=== PATIENT | male | born 1950 | race American Indian/Alaskan Native ===

== ENCOUNTER 2021-05-07 11:10 | Inpatient (IN) | payer MEDICARE, OTHER ==
[2021-05-07] MEDS ORDERED: ACETAMINOPHEN 325 MG TAB PO PRN (13:28)
[2021-05-07] MEDS ORDERED: HYDROcodone/ACETAMINOPHEN 5-325 MG TAB PO PRN (13:28)
[2021-05-07] MEDS ORDERED: DEXTROSE 50% IN WATER (25GM) 50 ML SYRINGE IV PRN (14:41)
[2021-05-07] MEDS: INSULIN LISPRO 100 UNIT/ML SUB-Q SCH (21:00)
--- NOTE | 2021-05-08 06:22 | History and Physical Report ---
History of Present Illness Date: 05/08/21 Date of admission: 05/07/21 18:43 Chief Complaint: CVA History of present illness: 71-year-old male who developed left-sided weakness and awaited for the problem to resolve however the symptoms did not resolve and the patient sought help several hours later at [facility]. 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 MRA head showed no large vessel occlusion, multifocal acute infarcts scattered throughout the right frontal parietal lobe, right parietal lobe, left temporal lobe without hemorrhagic conversion and probable small venous anomaly versus cavernous malformation in the left paracentral occipital lobe, chronic infarcts throughout the basal ganglia. No significant stenosis was seen in the vessels of the neck on MR angiogram. MRI brain showed acute to early subacute infarct of the right hemisphere. Patient's A1c at the outside hospital was 12.6 and reportedly the patient has been off medication for at least 2 years. Patient developed AMY superimposed on CKD stage III which was treated with hydration and monitoring. Patient underwent speech therapy evaluation for dysphagia who recommended softer foods and chopped meats due to dentition issues. Notes from outside hospital are slightly unclear as one section of the same note shows aspiration precautions and a modified diet but in a later section of the same note no aspiration precautions. At any rate will have speech therapy evaluate patient for appropriate current diet and continue to treat as needed. After the patient was medically stabilized they were transferred for further rehabilitation. All available medical records have been reviewed. Plan of care was discussed with patient. It appears patient was also sent from the outside hospital with a Holter monitor which she is currently wearing. Per policy as I am told from the monitoring room we also have to keep our telemetry on him. I will try and contact the outside physician Dr. Marcin Sen and see if we can find out who the supervisor safety deposit is as I cannot find anything in the records. If agreeable we will hold off on utilizing the Holter monitor and start that once the patient is discharge. Patient also states that he is not have any issues with swallowing but did early on in his previous hospital stay. We will still have speech therapy evaluate and adjust diet from there. Past History Past Medical History: diabetes, hypertension, renal failure (Stage III CKD per outside hospital) Past Surgical History: No surgical history Social history: lives with family, full code. denies: smoking, alcohol abuse Family history: cancer, diabetes Medications and Allergies Allergies Allergy/AdvReac Type Severity Reaction Status Date / Time No Known Allergies Allergy Unverified 05/07/21 13:43 Active Meds: Active Medications Acetaminophen (Acetaminophen 325 Mg Tab) 650 mg PO Q6H PRN PRN Reason: Pain MILD(1-3)/Fever >100.5/[place] Hydrocodone Bitart/Acetaminophen (Hydrocodone/Acetaminophen 5-325 Mg Tab) 1 each PO Q8H PRN PRN Reason: Pain, Moderate (4-6) Amlodipine Besylate (Amlodipine 10 Mg Tab) 10 mg PO QDAY [facility] Aspirin (Aspirin Ec 81 Mg Tab) 81 mg PO QDAY [facility] Atorvastatin Calcium (Atorvastatin 40 Mg Tab) 80 mg PO QHS [facility] Last Admin: 05/07/21 22:00 Dose: 80 mg Documented by: Clopidogrel Bisulfate (Clopidogrel 75 Mg Tab) 75 mg PO QDAY [facility] Stop: 05/29/21 09:59 Dextrose (Dextrose 50% In Water (25gm) 50 Ml Syringe) 50 ml IV Q30MIN PRN; Protocol PRN Reason: Hypoglycemia Glipizide (Glipizide 5 Mg Tab) 5 mg PO BIDDIAB [facility] Hydrochlorothiazide (Hydrochlorothiazide 25 Mg Tab) 25 mg PO QDAY [facility] Insulin Glargine (Insulin Glargine 100 Units/Ml) 18 units SUB-Q QHS [facility] Insulin Human Lispro (Insulin Lispro 100 Unit/Ml) 0 unit SUB-Q ACHS [facility]; Protocol Last Admin: 05/07/21 21:00 Dose: 2 unit Documented by: Labetalol HCl (Labetalol 200 Mg Tab) 200 mg PO BID [facility] Last Admin: 05/07/21 22:00 Dose: 200 mg Documented by: Losartan Potassium (Losartan 50 Mg Tab) 100 mg PO QDAY [facility] Review of Systems All systems: negative (ROS negative for 10 systems except as noted below with pertinent positives and negatives.) Constitutional: weakness, no fever, no chills, no anorexia Ears, nose, mouth and throat: no decreased hearing, no voice changes Cardiovascular: no chest pain, no palpitations, no edema Respiratory: no cough, no shortness of breath Gastrointestinal: no abdominal pain, no nausea, no vomiting, no diarrhea, no constipation Musculoskeletal: arm numbness/tingling (Mild on left), gait dysfunction, no leg numbness/tingling Integumentary: no rash, no pruritis Neurological: paralysis, weakness, parathesias, no sensory deficit, no double vision Psychiatric: no anxiety, no insomnia Exam - Exam Narrative exam: MUSCULOSKELETAL SPECIALTY EXAM CONSTITUTIONAL: Well developed, well nourished, appropriately groomed. RIGHT hand dominant. LYMPHATIC: No appreciable abnormalities palpable in neck RESPIRATORY: Clear to auscultation bilaterally, no increased work of breathing CARDIOVASCULAR: Regular Rate/ Rhythm, no swelling, edema or tenderness in BUE or BLE. All extremities warm. GI: + bowel sounds, soft, NTTP, nondistended. INTEGUMENTARY: Normal, no lesion, rash, masses or bruising noted in extremities. MUSCULOSKELETAL: BUE and BLE normal without defect, crepitus, subluxation, effusion, arthritic changes or TTP. R 5 /5 L 3 /5 left foot drop ROM decreased on left, normal on right Tone within normal limit NEURO: CN II : Visual govea full to confrontation CN II, III : PERRL CN III, IV, : EOMI CN V : Facial sensation intact CN VII : Symmetric facial expressions and eye closure CN VIII : Hearing intact to finger rustle CN IX, X : Palate/uvula elevate midline, phonation normal CN XI : Intact shoulder shrug and head rotation CN XII : Tongue protrudes midline Sensation intact in all extremities without extinction. Reflexes 2+ on right and 3+ on the left at biceps, brachioradialis and patella. 2 beats of clonus at left ankle. Coordination intact in RUE, impaired on left. No tremor noted in 4 extremities. Naming and repetition intact. Follows 2 step commands. Aphasia not appreciated Dysarthria not appreciated Dysphagia denied but will have speech therapy evaluate Neglect not appreciated POSTURE and GAIT: Sitting posture good. Balance and gait deferred until seen with therapy. PSYCH: Alert, oriented x3, affect appears euthymic. Insight appears intact. - Constitutional Vitals: Vital Signs - 12hr 05/07/21 05/07/21 22:00 23:37 Temperature 98.7 F Pulse Rate 85 79 Respiratory 18 Rate Blood Pressure 125/75 125/75 O2 Sat by Pulse 96 Oximetry - Labs Labs: Laboratory Results - last 72 hr 05/07/21 23:39 POC Glucose 203 H Assessment and Plan Assessment and plan: Patient was assessed and evaluated for Acute Inpatient Rehab Unit. Due to the patients above-mentioned medical complexity, along with decreased functional mobility and self care, this patient continues to require and be appropriate for a comprehensive, multidisciplinary [id number] rehabilitation program. These needs cannot be met in an outpatient or other less intensive setting. The patient would continue to benefit from skilled therapy intervention for at least 3 hours per day, five days a week, with techniques specific to the needs of the patient to improve function, activities of daily living, and reintegration into the community. The patient continues to require: -- OT to improve ROM, self-care, and learn use of adaptive equipment -- PT to improve strength and balance, functional transfers, and ambulation with energy conservation techniques to improve functional mobility -- SERVICE LEARNING COORDINATOR to address cognitive deficits and swallowing ability -- 24 hour RN to ensure and prevent skin breakdown, promote progressive independence while ensuring safety, ensure education regarding medications, and incorporation of the rehabilitation at the bedside -- 24 hour Administrative Intern to coordinate this interdisciplinary program, and to manage/prevent complications as a result of the patients medical comorbidities. -Plan of care by day 4 -Weekly team conferences With such a program, there is a reasonable certainty that the goals individualized for this patient can be achieved within the specified length of stay. CVA: Continue Secondary Stroke Prevention (Antithrombotic, Statin (Goal LDL-C <70), BP control (Goal <140/90), GLU control (Goal A1c <7), and lifestyle modification). Monitor for recurrent stroke or post-stroke recrudescence. Continue neuromotor therapy as above. Family training when available. Monitor for post stroke depression, cognitive deficits, seizure, dysphagia, aphasia, shoulder hand syndrome, sensory deficits, spasticity, bowel/bladder deficits, sleep disturbance, vision deficits and DVT. Prognosis for recovery and Secondary Stroke Prevention discussed. Follow up with Neurology. No driving until cleared by Neurologist. Hypertension: Continue medications, monitor patient for normotension and adjust medications as needed in order to achieve this. Goal blood pressure less than 140/90. Avoid hypotension. Diabetes: Poorly controlled with an A1c of 12.6. Per outside records patient was not taking any medications for the past 2 years for diabetes. We will continue carb controlled diet and insulin/sliding scale and adjust as needed for normoglycemia. Left foot drop: Continue work with therapy, AFO use as needed and will write a prescription for AFO at home if patient does not have return of function Dysphagia: Uncertain at this point based on outside records, will have speech therapy evaluate the patient and institute appropriate precautions. Possible atrial fibrillation: Based on scattered infarcts and outside records, patient may have undetected atrial fibrillation. Continue telemetry monitoring and look for any signs of of atrial fibrillation. If noted, will contact cardi ologist. Outside hospital recommending a 30-day event monitor after discharge. ADL dysfunction: OT will work on improving ability to perform ADLs (including assistive devices) to increase independence and decrease caregiver burden and improve functional transfers and mobility training. Difficulty walking: PT will work on gait training and proper use of assistive devices and advance as appropriate to use of stairs and outside ambulation on uneven surfaces. Unsteadiness on feet: PT will work on improving static and dynamic sitting and standing balance as well as proper use of assistive devices to decrease risk of falls. Abnormality of gait: PT will work to improve safety and efficiency of gait through neuromotor training and gait training along with instruction on proper use of assistive devices. Muscle weakness: PT & OT will work on strengthening exercises to improve functional strength including mixture of closed and open kinetic chain exercises. Debility: PT & OT will work on improving overall functional status to improve participation with ADLs, mobility and social involvement. Fatigue: PT & OT will work on improving endurance through aerobic exercises and therapeutic activity while monitoring patients tolerance for activity and vital signs as needed. DVT ppx: Heparin Pain: Continue physical modalities in therapy and pain medications as needed to achieve functional pain control. Sleep: Monitor and address as needed. Bowel: Monitor and address as needed. Appetite: Monitor and address as needed. Discharge planning: Pending therapy progress and care plan meeting. Will continue discussion with therapy team, SW, patient and family. Restrictions/ Precautions: Falls, aspiration WB status: FWB Functional Hx: ADLs: Independent Cognition: Independent Mobility: No AD Barriers to Discharge: Decreased mobility and ability to perform self care, balance deficits, weakness Estimated Length of Stay: 1421 days Discharge Destination: Home with family POST ADMISSION PHYSICIAN EVALUATION I have examined the patient and find that functional status, medical condition and appropriateness for IRF admission are essentially unchanged from those described in the preadmission screening. Will monitor for worsening neurologic dysfunction, shoulder-hand syndrome, secondary stroke, recrudescence, post drug depression, DVT/PE, bowel and bladder complications and complications due to hypertension, diabetes, possible atrial fibrillation, and electrolyte abnormalities. Will attempt to avoid occurrence of these issues or treat them if they present themselves.
[2021-05-08] MEDS: INSULIN LISPRO 100 UNIT/ML SUB-Q SCH ×5 (08:13→22:32)
[2021-05-08] MEDS: amLODIPine 10 MG TAB PO SCH (09:25)
[2021-05-08] MEDS: hydroCHLOROthiazide 25 MG TAB PO SCH (09:25)
[2021-05-08] MEDS: LOSARTAN 50 MG TAB PO SCH (09:26)
[2021-05-08] MEDS: ASPIRIN EC 81 MG TAB PO SCH (09:26)
[2021-05-08] MEDS: CLOPIDOGREL 75 MG TAB PO SCH (09:26)
[2021-05-08] MEDS: HEPARIN 5,000 UNIT/1 ML VIAL SUB-Q SCH ×2 (09:26→21:57)
[2021-05-08] MEDS: glipiZIDE 5 MG TAB PO SCH ×3 (09:26→21:37)
[2021-05-08 09:53] LABS: Albumin 3.6 g/dL (3.9-5)
[2021-05-08 10:29] LABS: Basophils % (Auto) 0.5 % (0.0-1.8); Eosinophils # (Auto) 0.1 K/mm3 (0.0-0.4); Eosinophils % (Auto) 0.9 % (0.0-4.3); Hematocrit 37.3 % (35.5-45.6); Hemoglobin 12.3 gm/dl (11.8-15.2); Lymphocytes # (Auto) 1.5 K/mm3 (1.2-5.4); Lymphocytes % (Auto) 16.7 % (13.4-35.0); Mean Corpuscular HGB Conc 33 % (32-34); Mean Corpuscular Volume 86 fl (84-94); Monocytes # (Auto) 0.9 K/mm3 (0.0-0.8); Monocytes % (Auto) 10.1 % (0.0-7.3); Platelet Count 270 K/mm3 (140-440); Red Blood Count 4.34 M/mm3 (3.65-5.03); Red Cell Distribution Width 14.4 % (13.2-15.2)
[2021-05-08] MEDS: INSULIN GLARGINE 100 UNITS/ML SUB-Q SCH ×2 (21:38→21:58)
[2021-05-09] MEDS: INSULIN LISPRO 100 UNIT/ML SUB-Q SCH ×4 (08:00→22:04)
[2021-05-09] MEDS: ASPIRIN EC 81 MG TAB PO SCH (10:27)
[2021-05-09] MEDS: HEPARIN 5,000 UNIT/1 ML VIAL SUB-Q SCH ×2 (10:27→21:19)
[2021-05-09] MEDS: hydroCHLOROthiazide 25 MG TAB PO SCH (10:27)
[2021-05-09] MEDS: LOSARTAN 50 MG TAB PO SCH (10:27)
[2021-05-09] MEDS: glipiZIDE 5 MG TAB PO SCH ×2 (10:28→18:15)
[2021-05-09] MEDS: CLOPIDOGREL 75 MG TAB PO SCH (10:28)
[2021-05-09] MEDS: amLODIPine 10 MG TAB PO SCH (10:28)
[2021-05-09] MEDS: INSULIN GLARGINE 100 UNITS/ML SUB-Q SCH (21:58)
[2021-05-10] MEDS: INSULIN LISPRO 100 UNIT/ML SUB-Q SCH ×4 (08:01→21:24)
[2021-05-10] MEDS: HEPARIN 5,000 UNIT/1 ML VIAL SUB-Q SCH ×2 (10:38→21:23)
[2021-05-10] MEDS: amLODIPine 10 MG TAB PO SCH (10:39)
[2021-05-10] MEDS: ASPIRIN EC 81 MG TAB PO SCH (10:39)
[2021-05-10] MEDS: LOSARTAN 50 MG TAB PO SCH (10:39)
[2021-05-10] MEDS: CLOPIDOGREL 75 MG TAB PO SCH (10:39)
[2021-05-10] MEDS: hydroCHLOROthiazide 25 MG TAB PO SCH (10:39)
[2021-05-10] MEDS: glipiZIDE 5 MG TAB PO SCH ×2 (10:40→17:03)
--- NOTE | 2021-05-10 20:26 | IRU Plan of Care ---
Interdisciplinary Plan of Care - IP IRU INTERDISCIPLINARY PLAN: [facility] Inpatient Rehab Unit Plan of Care IRU Interdisciplinary Care Plan Start: 05/08/21 13:03 Freq: Status: Active Protocol: Document 05/10/21 20:04 TH (Rec: 05/10/21 20:09 TH [id number]) Interdisciplinary Problem List Interdisciplinary Problem List Interdisciplinary Problem List Impaired Eating/Swallowing, Query Text:Answers will Trigger Problems Impaired Bathing/Grooming, and Outcomes on Worklist. Impaired Dressing,Impaired Mobility,Impaired Transfers, Impaired Toileting,Impaired Problem Solving,Knowledge Deficits,Adjustment to Disability,Discharge Concerns, Impaired Safety,Diabetes Education IRU Interdisciplinary Care Plan Therapy Services Therapy Services Will Include: Physical Therapy,Occupational Query Text:Patient will be seen for a Therapy,Speech Therapy minimum of 3 hours of daily therapy 5 out of 7 days a week. Therapy intensity may be adjusted within a 7 consecutive day period to effectively serve the individual needs of the patient. Treatment Frequency/Intensity/Duration Treatment Frequency 5x/week Treatment Intensity 3 hours/day Treatment Duration 10-14 days Problem Area: Eating/Swallowing Eating/Swallowing Outcomes Consume Least Restrictive Diet ,Improve Labial ROM/Strength, Improve Lingual ROM/Strength Eating/Swallowing Interventions Dysphagia Training, Compensatory Strategies, Neuromuscular Re-Education, Patient/Caregiver Education Problem Area: Bathing/Grooming Bathing/Grooming Outcomes Improve [place] w/ Grooming,Improve [place] w/ Bathing Bathing/Grooming Interventions ADL Training,Therapeutic Exercise,Therapeutic Activity, Neuromuscular Re-Education, Balance Work,Patient/Caregiver Education Problem Area: Dressing Dressing Outcomes Improve [place] w/ UB Dressing,Improve [place] w/ LB Dressing Dressing Interventions ADL Training,Use of Assistive Devices,Neuromuscular Re- Education,Therapeutic Exercise ,Balance Work,Patient/ Caregiver Education Problem Area: Mobility Mobility Outcomes Improve [place] w/ Bed Mobility,Improve [place] w/ Ambulation,Improve [place] w/ Stairs/Curb, Improve [place] w/ Wheelchair Mobility Interventions Therapeutic Exercise, Neuromuscular Re-Ed.,Use of Assistive Devices,Patient/ Caregiver Education,Bed Mobility Work,Gait Training,W/ C Mobility Work Problem Area: Transfers Transfers Outcomes Improve [place] w/ Bed Transfers,Improve [place] w/ Toilet Transfers,Improve [place] w/ Tub/Shower Transfers,Improve [place] w/ Car Transfers Transfers Interventions Transfer Training,Therapeutic Exercise,Neuromuscular Re- Education,Use of Assistive Devices,Patient/Caregiver Education Problem Area: Bowel/Bladder Managment Bowel/Bladder Outcomes Bowel/Bladder Interventions Problem Area: Toileting Toileting Outcomes Improve [place] w/ Toileting Toileting Interventions ADL Training,Use of Assistive Devices,Patient/Caregiver Education Problem Area: Nutrition Nutrition Outcomes Nutrition Interventions Problem Area: Comprehension Comprehension Outcomes Comprehension Interventions Problem Area: Expression Expression Outcomes Expression Interventions Problem Area: Problem Solving Problem Solving Outcomes Improve Problem Solving Problem Solving Interventions Cognitive Training,Safety Education,Patient/Caregiver Education Problem Area: Memory Memory Outcomes Memory Interventions Problem Area: Pain Management Pain Management Outcomes Pain Management Interventions Problem Area: Knowledge Deficits Knowledge Deficits Outcomes Demonstrate Ability to Manage Blood Glucose,Verbalize Understanding of S/S of Stroke Knowledge Deficits Interventions Disease/Injury/Sx. Intervention Education Problem Area: Skin/Tissue Integrity Skin/Tissue Integrity Outcomes Skin/Tissue Integrity Interventions Problem Area: Social Interaction Social Interaction Outcomes Social Interaction Interventions Problem Area: Adjustment to Disability Adjustment to Disability Outcomes Adjustment to Disability Interventions Problem Area: Discharge Concerns Discharge Concerns Outcomes Discharge w/ Necessary Equipment,Have Home Health/ Outpatient Services Discharge Concerns Interventions Equipment Assessment, Acquisition and Placement, Family/Caregiver Training Problem Area: Community Reintegration Community Reintegration Outcomes Community Reintegration Interventions Problem Area: Home Management Home Management Outcomes Home Management Interventions Problem Area: Safety Safety Outcomes Provide Safe Environment Safety Interventions Identify Fall Risk,[place] Pt. to Environment,Reduce Environmental Hazards Problem Area: Medication Education Medication Education Outcomes Medication Education Interventions Problem Area: Diabetes Education Diabetes Education Outcomes Demonstrate Knowledge of Resources Availlable in Diabetic Ed. Folder Diabetes Education Interventions Discuss Pathophysiology of Diabetes Problem Area: Oxygenation Oxygenation Outcomes Oxygenation Interventions Problem Area: Cardiovascular Cardiovascular Outcomes Cardiovascular Interventions Physician Only Medical Prognosis and Rehabilitation Good rehab potential, good medical prognosis Potential (Completed by Physician) This plan of care has been developed based on the findings from the pre- admission assessment, post admission physician evaluation, information gathered from the assessments from all therapy disciplines and other pertinent clinicians. The plan of care has been reviewed and discussed in collaboration with the interdisciplinary team. The plan of care will be reviewed and updated at least weekly.
[2021-05-10] MEDS: INSULIN GLARGINE 100 UNITS/ML SUB-Q SCH (21:24)
[2021-05-11 06:29] LABS: Mean Corpuscular HGB Conc 34 % (32-34); Mean Corpuscular Volume 86 fl (84-94); Platelet Count 371 K/mm3 (140-440); Red Blood Count 4.52 M/mm3 (3.65-5.03)
[2021-05-11 06:39] LABS: Calcium 9.3 mg/dL (8.4-10.2)
[2021-05-11] MEDS: hydroCHLOROthiazide 25 MG TAB PO SCH (09:12)
[2021-05-11] MEDS: ASPIRIN EC 81 MG TAB PO SCH (09:12)
[2021-05-11] MEDS: glipiZIDE 5 MG TAB PO SCH ×2 (09:12→17:05)
[2021-05-11] MEDS: HEPARIN 5,000 UNIT/1 ML VIAL SUB-Q SCH ×2 (09:13→21:26)
[2021-05-11] MEDS: CLOPIDOGREL 75 MG TAB PO SCH (09:13)
[2021-05-11] MEDS: amLODIPine 10 MG TAB PO SCH (09:13)
[2021-05-11] MEDS: LOSARTAN 50 MG TAB PO SCH (09:14)
[2021-05-11] MEDS: INSULIN LISPRO 100 UNIT/ML SUB-Q SCH ×4 (09:17→21:23)
--- NOTE | 2021-05-11 10:03 | Progress Note ---
Subjective Date of service: 05/11/21 Principal diagnosis: CVA Interval history: 71-year-old male who developed left-sided weakness and awaited for the problem to resolve however the symptoms did not resolve and the patient sought help several hours later at [facility]. 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 MRA head showed no large vessel occlusion, multifocal acute infarcts scattered throughout the right frontal parietal lobe, right parietal lobe, left temporal lobe without hemorrhagic conversion and probable small venous anomaly versus cavernous malformation in the left paracentral occipital lobe, chronic infarcts throughout the basal ganglia. No significant stenosis was seen in the vessels of the neck on MR angiogram. MRI brain showed acute to early subacute infarct of the right hemisphere. Patient's A1c at the outside hospital was 12.6 and reportedly the patient has been off medication for at least 2 years. Patient developed AMY superimposed on CKD stage III which was treated with hydration and monitoring. Patient underwent speech therapy evaluation for dysphagia who recommended softer foods and chopped meats due to dentition issues. Notes from outside hospital are slightly unclear as one section of the same note shows aspiration precautions and a modified diet but in a later section of the same note no aspiration precautions. At any rate will have speech therapy evaluate p atient for appropriate current diet and continue to treat as needed. After the patient was medically stabilized they were transferred for further rehabilitation. All available medical records have been reviewed. Plan of care was discussed with patient. Interval History: Patient is participating in therapy and making reasonable progress. Taking rest breaks as needed. +BM. Denies pain, palpitations, dyspnea, cough, N/V, or joint pain. CVA: Continue secondary stroke prevention. Currently no signs of post stroke depression, shoulder-hand syndrome, spasticity, worsening neurologic condition or recrudescence. Patient does have possible issues with urinary hesitancy which may be related to BPH or the CVA. Will monitor and treat if needed. Hypertension: Blood pressure doing fairly well on current regimen, continue medications and adjust for normotension. Goal blood pressure less than 140/90. Diabetes: Glucose values are starting to improve slightly. Continue medications and look to adjust as needed in order to obtain normoglycemia. We will look to increase glargine slightly tonight. Left foot drop: Continue therapy as noted. Will continue use of AFO and patient will likely need AFO upon discharge. Dysphagia: Evaluated by speech therapy and no signs or symptoms of dysphagia were noted. Due to dentition, recommendation was for mechanical soft diet with chopped meats and thin liquids. Possible atrial fibrillation: Was able to speak with physician at outside hospital concerning the Holter monitor. They are in agreement with us removing the Holter monitor and continue the patient on in-house telemetry until discharge at which time the patient will continue the Holter monitor. So far no episodes of atrial fibrillation noted. CKD: Slight bump in creatinine with an improvement in the BUN. Continue to monitor, avoid nephrotoxic medications. Consider renal consult if needed. ADL and mobility deficits: Continue therapy as noted in order to improve patient's ability to perform ADLs and improve mobility without caregiver assistance if possible. All records, vitals, labs and medications were reviewed. No other issues per patient, nursing or therapy. Objective - Exam Narrative Exam: MUSCULOSKELETAL SPECIALTY EXAM CONSTITUTIONAL: Well developed, well nourished, appropriately groomed. RIGHT hand dominant. RESPIRATORY: Clear to auscultation bilaterally, no increased work of breathing CARDIOVASCULAR: Regular Rate/ Rhythm, no swelling, edema or tenderness in BUE or BLE. All extremities warm. GI: + bowel sounds, soft, NTTP, nondistended. INTEGUMENTARY: Normal, no lesion, rash, masses or bruising noted in extremities. MUSCULOSKELETAL: BUE and BLE normal without defect, crepitus, subluxation, effusion, arthritic changes or TTP. R 5 /5 L 3 - 4- /5 left foot drop ROM decreased on left, normal on right Tone within normal limit NEURO: Sensation intact in all extremities without extinction. No tremor noted in 4 extremities. Naming and repetition intact. Follows 2 step commands. Aphasia not appreciated Dysarthria not appreciated Dysphagia not appreciated Neglect not appreciated POSTURE and GAIT: Sitting posture good. Balance and gait deferred until seen with therapy. PSYCH: Alert, oriented x3, affect appears euthymic. Insight appears intact. - Constitutional Vitals: Vital Signs - 12hr 05/11/21 05/11/21 05/11/21 00:00 00:05 08:44 Temperature 97.9 F 98.3 F Pulse Rate 76 79 83 Respiratory 18 20 Rate Blood Pressure 111/64 120/77 O2 Sat by Pulse 96 93 Oximetry 05/11/21 09:13 Temperature Pulse Rate 83 Respiratory Rate Blood Pressure 120/77 O2 Sat by Pulse Oximetry - Allied health notes Allied health notes reviewed: nursing, PT, ST, OT FIMS assessment as documented by PT/OT/ST: Locomotion- walk/wheelchair Ambulation Distance 80 - Labs CBC & Chem 7: 05/11/21 05:52 05/11/21 05:52 Labs: Laboratory Results - last 72 hr 05/08/21 05/08/21 05/08/21 09:05 11:27 16:08 WBC 9.0 RBC 4.34 Hgb 12.3 Hct 37.3 MCV 86 MCH 28 MCHC 33 RDW 14.4 Plt Count 270 Lymph % (Auto) 16.7 [place] % (Auto) 10.1 H Eos % (Auto) 0.9 Baso % (Auto) 0.5 Lymph # (Auto) 1.5 [place] # (Auto) 0.9 H Eos # (Auto) 0.1 Baso # (Auto) 0.0 Seg Neutrophils % 71.8 H Seg Neutrophils # 6.5 Sodium Potassium Chloride Carbon Dioxide Anion Gap BUN Creatinine Estimated GFR BUN/Creatinine Ratio Glucose POC Glucose 234 H 61 L Calcium 05/08/21 05/09/21 05/09/21 22:56 07:55 11:36 WBC RBC Hgb Hct MCV MCH MCHC RDW Plt Count Lymph % (Auto) [place] % (Auto) Eos % (Auto) Baso % (Auto) Lymph # (Auto) [place] # (Auto) Eos # (Auto) Baso # (Auto) Seg Neutrophils % Seg Neutrophils # Sodium Potassium Chloride Carbon Dioxide Anion Gap BUN Creatinine Estimated GFR BUN/Creatinine Ratio Glucose POC Glucose 145 H 182 H 266 H Calcium 05/09/21 05/09/21 05/10/21 16:32 21:26 07:59 WBC RBC Hgb Hct MCV MCH MCHC RDW Plt Count Lymph % (Auto) [place] % (Auto) Eos % (Auto) Baso % (Auto) Lymph # (Auto) [place] # (Auto) Eos # (Auto) Baso # (Auto) Seg Neutrophils % Seg Neutrophils # Sodium Potassium Chloride Carbon Dioxide Anion Gap BUN Creatinine Estimated GFR BUN/Creatinine Ratio Glucose POC Glucose 188 H 177 H 185 H Calcium 05/10/21 05/10/21 05/10/21 11:39 16:05 20:44 WBC RBC Hgb Hct MCV MCH MCHC RDW Plt Count Lymph % (Auto) [place] % (Auto) Eos % (Auto) Baso % (Auto) Lymph # (Auto) [place] # (Auto) Eos # (Auto) Baso # (Auto) Seg Neutrophils % Seg Neutrophils # Sodium Potassium Chloride Carbon Dioxide Anion Gap BUN Creatinine Estimated GFR BUN/Creatinine Ratio Glucose POC Glucose 238 H 174 H 195 H Calcium 05/11/21 05/11/21 05/11/21 05:52 05:52 08:42 WBC 8.9 RBC 4.52 Hgb 13.0 Hct 39.0 MCV 86 MCH 29 MCHC 34 RDW 14.0 Plt Count 371 Lymph % (Auto) [place] % (Auto) Eos % (Auto) Baso % (Auto) Lymph # (Auto) [place] # (Auto) Eos # (Auto) Baso # (Auto) Seg Neutrophils % Seg Neutrophils # Sodium 134 L Potassium 4.0 Chloride 97.1 L Carbon Dioxide 24 Anion Gap 17 BUN 25 H Creatinine 2.1 H Estimated GFR 38 BUN/Creatinine Ratio 12 Glucose 145 H POC Glucose 166 H Calcium 9.3 Assessment and Plan CVA: Continue Secondary Stroke Prevention (Antithrombotic, Statin (Goal LDL-C <70), BP control (Goal <140/90), GLU control (Goal A1c <7), and lifestyle modification). Monitor for recurrent stroke or post-stroke recrudescence. Continue neuromotor therapy as above. Family training when available. Monitor for post stroke depression, cognitive deficits, seizure, dysphagia, aphasia, shoulder hand syndrome, sensory deficits, spasticity, bowel/bladder deficits, sleep disturbance, vision deficits and DVT. Prognosis for recovery and Secondary Stroke Prevention discussed. Follow up with Neurology. No driving until cleared by Neurologist. Hypertension: Continue medications, monitor patient for normotension and adjust medications as needed in order to achieve this. Goal blood pressure less than 140/90. Avoid hypotension. Diabetes: Poorly controlled with an A1c of 12.6. Per outside records patient was not taking any medications for the past 2 years for diabetes. We will continue carb controlled diet and insulin/sliding scale and adjust as needed for normoglycemia. Left foot drop: Continue work with therapy, AFO use as needed and will write a prescription for AFO at home if patient does not have return of function Dysphagia: Uncertain at this point based on outside records, will have speech therapy evaluate the patient and institute appropriate precautions. Possible atrial fibrillation: Based on scattered infarcts and outside records, patient may have undetected atrial fibrillation. Continue telemetry monitoring and look for any signs of of atrial fibrillation. If noted, will contact telephone sales representative. Outside hospital recommending a 30-day event monitor after discharge. CKD: Uncertain of baseline but patient is relatively stable currently with only a slight bump. Avoid nephrotoxic medications and consider renal consult if needed ADL dysfunction: OT will work on improving ability to perform ADLs (including assistive devices) to increase independence and decrease caregiver burden and improve functional transfers and mobility training. Difficulty walking: PT will work on gait training and proper use of assistive devices and advance as appropriate to use of stairs and outside ambulation on uneven surfaces. Unsteadiness on feet: PT will work on improving static and dynamic sitting and standing balance as well as proper use of assistive devices to decrease risk of falls. Abnormality of gait: PT will work to improve safety and efficiency of gait through neuromotor training and gait training along with instruction on proper use of assistive devices. Muscle weakness: PT & OT will work on strengthening exercises to improve fu nctional strength including mixture of closed and open kinetic chain exercises. Debility: PT & OT will work on improving overall functional status to improve participation with ADLs, mobility and social involvement. Fatigue: PT & OT will work on improving endurance through aerobic exercises and therapeutic activity while monitoring patients tolerance for activity and vital signs as needed. DVT ppx: Heparin Pain: Continue physical modalities in therapy and pain medications as needed to achieve functional pain control. Sleep: Monitor and address as needed. Bowel: Monitor and address as needed. Appetite: Monitor and address as needed. Discharge planning: Pending therapy progress and care plan meeting. Will continue discussion with therapy team, SW, patient and family. Restrictions/ Precautions: Falls WB status: FWB Functional Hx: ADLs: Independent Cognition: Independent Mobility: No AD Barriers to Discharge: Decreased mobility and ability to perform self care, balance deficits, weakness Estimated Length of Stay: 1421 days Discharge Destination: Home with family
[2021-05-11] MEDS ORDERED: NAPROXEN 500 MG TAB PO PRN (17:46)
[2021-05-11] MEDS: INSULIN GLARGINE 100 UNITS/ML SUB-Q SCH (21:25)
--- NOTE | 2021-05-12 07:56 | Progress Note ---
Subjective Date of service: 05/12/21 Principal diagnosis: CVA Interval history: 71-year-old male who developed left-sided weakness and awaited for the problem to resolve however the symptoms did not resolve and the patient sought help several hours later at [facility]. 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 MRA head showed no large vessel occlusion, multifocal acute infarcts scattered throughout the right frontal parietal lobe, right parietal lobe, left temporal lobe without hemorrhagic conversion and probable small venous anomaly versus cavernous malformation in the left paracentral occipital lobe, chronic infarcts throughout the basal ganglia. No significant stenosis was seen in the vessels of the neck on MR angiogram. MRI brain showed acute to early subacute infarct of the right hemisphere. Patient's A1c at the outside hospital was 12.6 and reportedly the patient has been off medication for at least 2 years. Patient developed AMY superimposed on CKD stage III which was treated with hydration and monitoring. Patient underwent speech therapy evaluation for dysphagia who recommended softer foods and chopped meats due to dentition issues. Notes from outside hospital are slightly unclear as one section of the same note shows aspiration precautions and a modified diet but in a later section of the same note no aspiration precautions. At any rate will have speech therapy evaluate p atient for appropriate current diet and continue to treat as needed. After the patient was medically stabilized they were transferred for further rehabilitation. All available medical records have been reviewed. Plan of care was discussed with patient. Interval History: Patient is participating in therapy and making reasonable progress. Taking rest breaks as needed. +BM. Denies pain, palpitations, dyspnea, cough, N/V, or joint pain. Patient did experience some back pain last night and nursing called me for his request of taking Aleve. Pain is better after 1 dose. Did discuss with the patient that he needs to restrict his use of NSAIDs due to his kidney function as well as use of Plavix and aspirin. Patient states that he typically will take 1 pill every couple of weeks whenever he starts to have backache. Will reduce the availability and dose of Aleve and monitor his use of it during his stay. CVA: Continue secondary stroke prevention. Currently no signs of post stroke d epression, shoulder-hand syndrome, spasticity, worsening neurologic condition or recrudescence. Urinary hesitancy has improved and patient is urinating without any issues currently. Hypertension: Blood pressure doing well on current regimen, continue medications and adjust for normotension. Goal blood pressure less than 140/90. Avoid hypotension. Diabetes: Glucose values are starting to improve slightly. Continue medications and look to adjust as needed in order to obtain normoglycemia. Monitor over the next several days after increasing dose of glargine to ensure patient tolerates the dose and improves. Left foot drop: Continue therapy as noted. Will continue use of AFO and patient will likely need AFO upon discharge. Dysphagia: Evaluated by speech therapy and no signs or symptoms of dysphagia were noted. Due to dentition, recommendation was for mechanical soft diet with chopped meats and thin liquids. Possible atrial fibrillation: Was able to speak with physician at outside hospital concerning the Holter monitor. They are in agreement with us removing the Holter monitor and continue the patient on in-house telemetry until discharge at which time the patient will continue the Holter monitor. So far no episodes of atrial fibrillation or other anomalies noted on monitoring. CKD: Discussed CKD with the patient this morning and as this relates to his use of NSAIDs as well as diabetes and hypertension. Patient was unaware of this diagnosis previously, have advised him to follow-up with PCP for further monitoring after discharge. Continue to monitor, avoid nephrotoxic medications. Consider renal consult if needed. ADL and mobility deficits: Continue therapy as noted in order to improve patient's ability to perform ADLs and improve mobility without caregiver assistance if possible. All records, vitals, labs and medications were reviewed. No other issues per patient, nursing or therapy. Patient discussed during team conference. Making good progress overall. Will need AFO at discharge. May also need a [place] knee cage/hinged knee brace as the patient is experiencing hyperextension during stance and ambulation. Looking at outpatient therapy if we can ensure that the patient has transportation available. We will look to discharge towards the end of next week if he continues making progress Objective - Exam Narrative Exam: MUSCULOSKELETAL SPECIALTY EXAM CONSTITUTIONAL: Well developed, well nourished, appropriately groomed. RIGHT hand dominant. RESPIRATORY: Clear to auscultation bilaterally, no increased work of breathing CARDIOVASCULAR: Regular Rate/ Rhythm, no swelling, edema or tenderness in BUE or BLE. All extremities warm. GI: + bowel sounds, soft, NTTP, nondistended. INTEGUMENTARY: Normal, no lesion, rash, masses or bruising noted in extremities. MUSCULOSKELETAL: BUE and BLE normal without defect, crepitus, subluxation, effusion, arthritic changes or TTP. R 5 /5 L 3 - 4- /5 left foot drop ROM decreased on left, normal on right Tone within normal limit NEURO: Sensation intact in all extremities without extinction. No tremor noted in 4 extremities. Naming and repetition intact. Follows 2 step commands. Aphasia not appreciated Dysarthria not appreciated Dysphagia not appreciated Neglect not appreciated POSTURE and GAIT: Sitting posture good. Balance and gait deferred until seen with therapy. PSYCH: Alert, oriented x3, affect appears euthymic. Insight appears intact. - Constitutional Vitals: Vital Signs - 12hr 05/11/21 05/11/21 05/11/21 20:34 21:26 23:30 Temperature 97.5 F L Pulse Rate 82 67 Pulse Rate [ 82 Right Radial] Respiratory 18 16 Rate Blood Pressure 103/72 109/73 O2 Sat by Pulse 99 96 Oximetry 05/12/21 00:00 Temperature Pulse Rate 90 Pulse Rate [ Right Radial] Respiratory Rate Blood Pressure O2 Sat by Pulse Oximetry - Allied health notes Allied health notes reviewed: nursing, PT, ST, OT FIMS assessment as documented by PT/OT/ST: Locomotion- walk/wheelchair Ambulation Distance 80 - Labs CBC & Chem 7: 05/11/21 05:52 05/11/21 05:52 Labs: Laboratory Results - last 72 hr 05/09/21 05/09/21 05/09/21 07:55 11:36 16:32 WBC RBC Hgb Hct MCV MCH MCHC RDW Plt Count Sodium Potassium Chloride Carbon Dioxide Anion Gap BUN Creatinine Estimated GFR BUN/Creatinine Ratio Glucose POC Glucose 182 H 266 H 188 H Calcium 05/09/21 05/10/21 05/10/21 21:26 07:59 11:39 WBC RBC Hgb Hct MCV MCH MCHC RDW Plt Count Sodium Potassium Chloride Carbon Dioxide Anion Gap BUN Creatinine Estimated GFR BUN/Creatinine Ratio Glucose POC Glucose 177 H 185 H 238 H Calcium 05/10/21 05/10/21 05/11/21 16:05 20:44 05:52 WBC 8.9 RBC 4.52 Hgb 13.0 Hct 39.0 MCV 86 MCH 29 MCHC 34 RDW 14.0 Plt Count 371 Sodium Potassium Chloride Carbon Dioxide Anion Gap BUN Creatinine Estimated GFR BUN/Creatinine Ratio Glucose POC Glucose 174 H 195 H Calcium 05/11/21 05/11/21 05/11/21 05:52 08:42 12:48 WBC RBC Hgb Hct MCV MCH MCHC RDW Plt Count Sodium 134 L Potassium 4.0 Chloride 97.1 L Carbon Dioxide 24 Anion Gap 17 BUN 25 H Creatinine 2.1 H Estimated GFR 38 BUN/Creatinine Ratio 12 Glucose 145 H POC Glucose 166 H 132 H Calcium 9.3 05/11/21 05/11/21 16:17 21:14 WBC RBC Hgb Hct MCV MCH MCHC RDW Plt Count Sodium Potassium Chloride Carbon Dioxide Anion Gap BUN Creatinine Estimated GFR BUN/Creatinine Ratio Glucose POC Glucose 96 113 H Calcium Assessment and Plan CVA: Continue Secondary Stroke Prevention (Antithrombotic, Statin (Goal LDL-C <70), BP control (Goal <140/90), GLU control (Goal A1c <7), and lifestyle modification). Monitor for recurrent stroke or post-stroke recrudescence. Continue neuromotor therapy as above. Family training when available. Monitor for post stroke depression, cognitive deficits, seizure, dysphagia, aphasia, shoulder hand syndrome, sensory deficits, spasticity, bowel/bladder deficits, sleep disturbance, vision deficits and DVT. Prognosis for recovery and Secondary Stroke Prevention discussed. Follow up with Neurology. No driving until cleared by Neurologist. Hypertension: Continue medications, monitor patient for normotension and adjust medications as needed in order to achieve this. Goal blood pressure less than 140/90. Avoid hypotension. Diabetes: Poorly controlled with an A1c of 12.6. Per outside records patient was not taking any medications for the past 2 years for diabetes. We will continue carb controlled diet and insulin/sliding scale and adjust as needed for normoglycemia. Left foot drop: Continue work with therapy, AFO use as needed and will write a prescription for AFO at home if patient does not have return of function Dysphagia: Uncertain at this point based on outside records, will have speech therapy evaluate the patient and institute appropriate precautions. Possible atrial fibrillation: Based on scattered infarcts and outside records, patient may have undetected atrial fibrillation. Continue telemetry monitoring and look for any signs of of atrial fibrillation. If noted, will contact dbas. Outside hospital recommending a 30-day event monitor after discharge. CKD: Uncertain of baseline but patient is relatively stable currently with only a slight bump. Avoid nephrotoxic medications and consider renal consult if needed. Have discussed with the patient interaction between age, diabetes, hypertension as well as use of NSAIDs with CKD. Advised patient to follow-up with PCP for further monitoring after discharge. ADL dysfunction: OT will work on improving ability to perform ADLs (including assistive devices) to increase independence and decrease caregiver burden and improve functional transfers and mobility training. Difficulty walking: PT will work on gait training and proper use of assistive devices and advance as appropriate to use of stairs and outside ambulation on uneven surfaces. Unsteadiness on feet: PT will work on improving static and dynamic sitting and standing balance as well as proper use of assistive devices to decrease risk of falls. Abnormality of gait: PT will work to improve safety and efficiency of gait through neuromotor training and gait training along with instruction on proper use of assistive devices. Muscle weakness: PT & OT will work on strengthening exercises to improve functio nal strength including mixture of closed and open kinetic chain exercises. Debility: PT & OT will work on improving overall functional status to improve participation with ADLs, mobility and social involvement. Fatigue: PT & OT will work on improving endurance through aerobic exercises and therapeutic activity while monitoring patients tolerance for activity and vital signs as needed. DVT ppx: Heparin Pain: Continue physical modalities in therapy and pain medications as needed to achieve functional pain control. Sleep: Monitor and address as needed. Bowel: Monitor and address as needed. Appetite: Monitor and address as needed. Discharge planning: Pending therapy progress and care plan meeting. Will continue discussion with therapy team, SW, patient and family. Looking to discharge at the end of next week based on patient's continued progress. Would prefer outpatient therapy if the patient has transportation otherwise may resort to home health. AFO will need to be ordered next week, [id number] hinged knee brace may be needed as well. Restrictions/ Precautions: Falls WB status: FWB Functional Hx: ADLs: Independent Cognition: Independent Mobility: No AD Barriers to Discharge: Decreased mobility and ability to perform self care, balance deficits, weakness Estimated Length of Stay: 1421 days Discharge Destination: Home with family
[2021-05-12] MEDS: INSULIN LISPRO 100 UNIT/ML SUB-Q SCH ×4 (08:42→22:09)
[2021-05-12] MEDS: ASPIRIN EC 81 MG TAB PO SCH (09:21)
[2021-05-12] MEDS: glipiZIDE 5 MG TAB PO SCH ×2 (09:21→17:09)
[2021-05-12] MEDS: CLOPIDOGREL 75 MG TAB PO SCH (09:21)
[2021-05-12] MEDS: hydroCHLOROthiazide 25 MG TAB PO SCH (09:21)
[2021-05-12] MEDS: amLODIPine 10 MG TAB PO SCH (09:21)
[2021-05-12] MEDS: LOSARTAN 50 MG TAB PO SCH (09:22)
[2021-05-12] MEDS: HEPARIN 5,000 UNIT/1 ML VIAL SUB-Q SCH ×2 (09:22→22:10)
[2021-05-12] MEDS ORDERED: NAPROXEN 375 MG TAB PO PRN (10:00)
[2021-05-12] MEDS: INSULIN GLARGINE 100 UNITS/ML SUB-Q SCH (22:10)
[2021-05-13 07:42] LABS: Hematocrit 38.8 % (35.5-45.6); Hemoglobin 12.8 gm/dl (11.8-15.2); Mean Corpuscular HGB Conc 33 % (32-34); Mean Corpuscular Volume 85 fl (84-94); Platelet Count 413 K/mm3 (140-440); Red Cell Distribution Width 13.8 % (13.2-15.2)
[2021-05-13 07:55] LABS: Calcium 9.2 mg/dL (8.4-10.2)
[2021-05-13] MEDS: INSULIN LISPRO 100 UNIT/ML SUB-Q SCH ×4 (08:44→22:43)
[2021-05-13] MEDS: glipiZIDE 5 MG TAB PO SCH ×2 (08:45→17:35)
[2021-05-13] MEDS: CLOPIDOGREL 75 MG TAB PO SCH (09:27)
[2021-05-13] MEDS: ASPIRIN EC 81 MG TAB PO SCH (09:27)
[2021-05-13] MEDS: HEPARIN 5,000 UNIT/1 ML VIAL SUB-Q SCH ×2 (09:27→22:43)
[2021-05-13] MEDS: hydroCHLOROthiazide 25 MG TAB PO SCH (09:27)
[2021-05-13] MEDS: amLODIPine 10 MG TAB PO SCH (12:44)
[2021-05-13] MEDS: LOSARTAN 50 MG TAB PO SCH (12:44)
--- NOTE | 2021-05-13 14:32 | Progress Note ---
Subjective Date of service: 05/13/21 Principal diagnosis: CVA Interval history: 71-year-old male who developed left-sided weakness and awaited for the problem to resolve however the symptoms did not resolve and the patient sought help several hours later at [facility]. 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 MRA head showed no large vessel occlusion, multifocal acute infarcts scattered throughout the right frontal parietal lobe, right parietal lobe, left temporal lobe without hemorrhagic conversion and probable small venous anomaly versus cavernous malformation in the left paracentral occipital lobe, chronic infarcts throughout the basal ganglia. No significant stenosis was seen in the vessels of the neck on MR angiogram. MRI brain showed acute to early subacute infarct of the right hemisphere. Patient's A1c at the outside hospital was 12.6 and reportedly the patient has been off medication for at least 2 years. Patient developed AMY superimposed on CKD stage III which was treated with hydration and monitoring. Patient underwent speech therapy evaluation for dysphagia who recommended softer foods and chopped meats due to dentition issues. Notes from outside hospital are slightly unclear as one section of the same note shows aspiration precautions and a modified diet but in a later section of the same note no aspiration precautions. At any rate will have speech therapy evaluate p atient for appropriate current diet and continue to treat as needed. After the patient was medically stabilized they were transferred for further rehabilitation. All available medical records have been reviewed. Plan of care was discussed with patient. Interval History: Patient is participating in therapy and making reasonable progress. Taking rest breaks as needed. +BM. Denies pain, palpitations, dyspnea, cough, N/V, or joint pain. Patient commented on having chopped meats today. Dentition appears fairly reasonable and patient states that he does not have any issues with chewing. Will advance him to a normal diet and will allow him to moderate his diet as he sees fit. Previously cleared for dysphagia by speech therapy. States that he does eat normal food at home without any modifications. CVA: Continue secondary stroke prevention. Currently no signs of post stroke depression, shoulder-hand syndrome, spasticity, worsening neurologic condition or recrudescence. Urinary hesitancy has improved and patient is urinating without any issues currently. Hypertension: Blood pressure doing well on current regimen, continue medications and adjust for normotension. Goal blood pressure less than 140/90. Avoid hypotension. Diabetes: Glucose values are starting to improve slightly. Continue medications and look to adjust as needed in order to obtain normoglycemia. Monitor over the next several days after increasing dose of glargine to ensure patient tolerates the dose and improves. Left foot drop: Continue therapy as noted. Will continue use of AFO and patient will likely need AFO upon discharge. Dysphagia: Evaluated by speech therapy and no signs or symptoms of dysphagia were noted. Advance to regular consistencies, monitor. Possible atrial fibrillation: Continue the patient on in-house telemetry until discharge at which time the patient will continue the Holter monitor. So far no episodes of atrial fibrillation or other anomalies noted on monitoring. CKD: Discussed CKD with the patient this morning and as this relates to his use of NSAIDs as well as diabetes and hypertension. Patient was unaware of this diagnosis previously, have advised him to follow-up with PCP for further monitoring after discharge. Continue to monitor, avoid nephrotoxic medications. Consider renal consult if needed. BUN and creatinine further elevated today, will start gentle fluids and monitor. ADL and mobility deficits: Continue therapy as noted in order to improve patient's ability to perform ADLs and improve mobility without caregiver assistance if possible. All records, vitals, labs and medications were reviewed. No other issues per patient, nursing or therapy. Objective - Exam Narrative Exam: MUSCULOSKELETAL SPECIALTY EXAM CONSTITUTIONAL: Well developed, well nourished, appropriately groomed. RIGHT hand dominant. RESPIRATORY: Clear to auscultation bilaterally, no increased work of breathing CARDIOVASCULAR: Regular Rate/ Rhythm, no swelling, edema or tenderness in BUE or BLE. All extremities warm. GI: + bowel sounds, soft, NTTP, nondistended. INTEGUMENTARY: Normal, no lesion, rash, masses or bruising noted in extremities. MUSCULOSKELETAL: BUE and BLE normal without defect, crepitus, subluxation, effusion, arthritic changes or TTP. R 5 /5 L 4- /5 left foot drop ROM decreased on left, normal on right Tone within normal limit NEURO: Sensation intact in all extremities without extinction. No tremor noted in 4 extremities. Naming and repetition intact. Follows 2 step commands. Aphasia not appreciated Dysarthria not appreciated Dysphagia not appreciated Neglect not appreciated POSTURE and GAIT: Sitting posture good. PSYCH: Alert, oriented x3, affect appears euthymic. Insight appears intact. - Constitutional Vitals: Vital Signs - 12hr 05/13/21 05/13/21 05/13/21 03:56 08:00 09:33 Temperature 97.6 F 97.8 F Pulse Rate 61 87 77 Pulse Rate [ 78 Right Radial] Respiratory 16 17 17 Rate Blood Pressure 118/67 Blood Pressure 101/62 [Left] O2 Sat by Pulse 97 97 99 Oximetry 05/13/21 12:43 Temperature 98.1 F Pulse Rate 76 Pulse Rate [ Right Radial] Respiratory 15 Rate Blood Pressure Blood Pressure 123/71 [Left] O2 Sat by Pulse 98 Oximetry - Allied health notes Allied health notes reviewed: nursing, PT, OT FIMS assessment as documented by PT/OT/ST: Locomotion- walk/wheelchair Ambulation Distance 80 - Labs CBC & Chem 7: 05/13/21 07:17 05/13/21 07:17 Labs: Laboratory Results - last 72 hr 05/10/21 05/10/21 05/11/21 16:05 20:44 05:52 WBC 8.9 RBC 4.52 Hgb 13.0 Hct 39.0 MCV 86 MCH 29 MCHC 34 RDW 14.0 Plt Count 371 Sodium Potassium Chloride Carbon Dioxide Anion Gap BUN Creatinine Estimated GFR BUN/Creatinine Ratio Glucose POC Glucose 174 H 195 H Calcium 05/11/21 05/11/21 05/11/21 05:52 08:42 12:48 WBC RBC Hgb Hct MCV MCH MCHC RDW Plt Count Sodium 134 L Potassium 4.0 Chloride 97.1 L Carbon Dioxide 24 Anion Gap 17 BUN 25 H Creatinine 2.1 H Estimated GFR 38 BUN/Creatinine Ratio 12 Glucose 145 H POC Glucose 166 H 132 H Calcium 9.3 05/11/21 05/11/21 05/12/21 16:17 21:14 08:35 WBC RBC Hgb Hct MCV MCH MCHC RDW Plt Count Sodium Potassium Chloride Carbon Dioxide Anion Gap BUN Creatinine Estimated GFR BUN/Creatinine Ratio Glucose POC Glucose 96 113 H 147 H Calcium 05/12/21 05/12/21 05/12/21 12:28 17:09 20:31 WBC RBC Hgb Hct MCV MCH MCHC RDW Plt Count Sodium Potassium Chloride Carbon Dioxide Anion Gap BUN Creatinine Estimated GFR BUN/Creatinine Ratio Glucose POC Glucose 194 H 125 H 134 H Calcium 05/13/21 05/13/21 05/13/21 07:17 07:17 07:51 WBC 6.8 RBC 4.60 Hgb 12.8 Hct 38.8 MCV 85 MCH 28 MCHC 33 RDW 13.8 Plt Count 413 Sodium 135 L Potassium 3.8 Chloride 96.8 L Carbon Dioxide 25 Anion Gap 17 BUN 43 H Creatinine 2.6 H Estimated GFR 30 BUN/Creatinine Ratio 17 Glucose 124 H POC Glucose 131 H Calcium 9.2 Assessment and Plan CVA: Continue Secondary Stroke Prevention (Antithrombotic, Statin (Goal LDL-C <70), BP control (Goal <140/90), GLU control (Goal A1c <7), and lifestyle modification). Monitor for recurrent stroke or post-stroke recrudescence. Continue neuromotor therapy as above. Family training when available. Monitor for post stroke depression, cognitive deficits, seizure, dysphagia, aphasia, shoulder hand syndrome, sensory deficits, spasticity, bowel/bladder deficits, sleep disturbance, vision deficits and DVT. Prognosis for recovery and Secondary Stroke Prevention discussed. Follow up with Neurology. No driving until cleared by Neurologist. Hypertension: Continue medications, monitor patient for normotension and adjust medications as needed in order to achieve this. Goal blood pressure less than 140/90. Avoid hypotension. Diabetes: Poorly controlled with an A1c of 12.6. Per outside records patient was not taking any medications for the past 2 years for diabetes. We will continue carb controlled diet and insulin/sliding scale and adjust as needed for normoglycemia. Left foot drop: Continue work with therapy, AFO use as needed and will write a prescription for AFO at home if patient does not have return of function Dysphagia: Uncertain at this point based on outside records, will have speech therapy evaluate the patient and institute appropriate precautions. Possible atrial fibrillation: Based on scattered infarcts and outside records, patient may have undetected atrial fibrillation. Continue telemetry monitoring and look for any signs of of atrial fibrillation. If noted, will contact intelligence operations. Outside hospital recommending a 30-day event monitor after discharge. CKD: Uncertain of baseline but patient is relatively stable currently with only a slight bump. Avoid nephrotoxic medications and consider renal consult if needed. Have discussed with the patient interaction between age, diabetes, hypertension as well as use of NSAIDs with CKD. Advised patient to follow-up with PCP for further monitoring after discharge. IV fluids started on 05/13, monitor for improvement of BUN and creatinine. ADL dysfunction: OT will work on improving ability to perform ADLs (including assistive devices) to increase independence and decrease caregiver burden and improve functional transfers and mobility training. Difficulty walking: PT will work on gait training and proper use of assistive devices and advance as appropriate to use of stairs and outside ambulation on uneven surfaces. Unsteadiness on feet: PT will work on improving static and dynamic sitting and standing balance as well as proper use of assistive devices to decrease risk of falls. Abnormality of gait: PT will work to improve safety and efficiency of gait through neuromotor training and gait training along with instruction on proper use of assistive devices. Muscle weakness: PT & OT will work on strengthening exercises to improve functional strength including mixture of closed and open kinetic chain exercises. Debility: PT & OT will work on improving overall functional status to improve participation with ADLs, mobility and social involvement. Fatigue: PT & OT will work on improving endurance through aerobic exercises and therapeutic activity while monitoring patients tolerance for activity and vital signs as needed. DVT ppx: Heparin Pain: Continue physical modalities in therapy and pain medications as needed to achieve functional pain control. Sleep: Monitor and address as needed. Bowel: Monitor and address as needed. Appetite: Monitor and address as needed. Discharge planning: Pending therapy progress and care plan meeting. Will con tinue discussion with therapy team, SW, patient and family. Looking to discharge at the end of next week based on patient's continued progress. Would prefer outpatient therapy if the patient has transportation otherwise may resort to home health. AFO will need to be ordered next week, [id number] hinged knee brace may be needed as well. Restrictions/ Precautions: Falls WB status: FWB Functional Hx: ADLs: Independent Cognition: Independent Mobility: No AD Barriers to Discharge: Decreased mobility and ability to perform self care, balance deficits, weakness Estimated Length of Stay: 1421 days Discharge Destination: Home with family
[2021-05-13] MEDS ORDERED: SODIUM CHLORIDE 0.9% 1000 ML 1,000 ML IV SCH (15:00)
[2021-05-13] MEDS: INSULIN GLARGINE 100 UNITS/ML SUB-Q SCH (22:43)
[2021-05-14] MEDS: LOSARTAN 50 MG TAB PO SCH (09:03)
[2021-05-14] MEDS: HEPARIN 5,000 UNIT/1 ML VIAL SUB-Q SCH ×2 (09:03→22:26)
[2021-05-14] MEDS: ASPIRIN EC 81 MG TAB PO SCH (09:03)
[2021-05-14] MEDS: INSULIN LISPRO 100 UNIT/ML SUB-Q SCH ×4 (09:04→22:28)
[2021-05-14] MEDS: glipiZIDE 5 MG TAB PO SCH (09:04)
[2021-05-14] MEDS: amLODIPine 10 MG TAB PO SCH (09:04)
[2021-05-14] MEDS: CLOPIDOGREL 75 MG TAB PO SCH (09:04)
--- NOTE | 2021-05-14 14:41 | Progress Note ---
Subjective Date of service: 05/14/21 Principal diagnosis: CVA Interval history: 71-year-old male who developed left-sided weakness and awaited for the problem to resolve however the symptoms did not resolve and the patient sought help several hours later at [facility]. 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 MRA head showed no large vessel occlusion, multifocal acute infarcts scattered throughout the right frontal parietal lobe, right parietal lobe, left temporal lobe without hemorrhagic conversion and probable small venous anomaly versus cavernous malformation in the left paracentral occipital lobe, chronic infarcts throughout the basal ganglia. No significant stenosis was seen in the vessels of the neck on MR angiogram. MRI brain showed acute to early subacute infarct of the right hemisphere. Patient's A1c at the outside hospital was 12.6 and reportedly the patient has been off medication for at least 2 years. Patient developed AMY superimposed on CKD stage III which was treated with hydration and monitoring. Patient underwent speech therapy evaluation for dysphagia who recommended softer foods and chopped meats due to dentition issues. Notes from outside hospital are slightly unclear as one section of the same note shows aspiration precautions and a modified diet but in a later section of the same note no aspiration precautions. At any rate will have speech therapy evaluate p atient for appropriate current diet and continue to treat as needed. After the patient was medically stabilized they were transferred for further rehabilitation. All available medical records have been reviewed. Plan of care was discussed with patient. Interval History: Patient is participating in therapy and making reasonable progress. Taking rest breaks as needed. +BM. Denies pain, palpitations, dyspnea, cough, N/V, or joint pain. Patient received a letter from insurance today. Still has issues that we need to work on but we will discharge home tomorrow. Renal function worsened over the last couple of days, IV fluids were given last night with a recheck of BMP in the morning scheduled but we will recheck now since we have found out that he will be discharged tomorrow. Have been holding his Glucotrol due to renal function and blood sugar and will discontinue that at this point. CVA: Continue secondary stroke prevention. Currently no signs of post stroke depression, shoulder-hand syndrome, spasticity, worsening neurologic condition or recrudescence. Urinary hesitancy has improved and patient is urinating without any issues currently. Hypertension: Blood pressure doing well on current regimen, continue medications and adjust for normotension. Goal blood pressure less than 140/90. Avoid hypotension. Diabetes: Glucose values are starting to improve slightly. Continue medications and look to adjust as needed in order to obtain normoglycemia. Monitor over the next several days after increasing dose of glargine to ensure patient tolerates the dose and improves. Left foot drop: Continue therapy as noted. Will continue use of AFO and patient will likely need AFO upon discharge. Dysphagia: Evaluated by speech therapy and no signs or symptoms of dysphagia were noted. Advance to regular consistencies, monitor. Possible atrial fibrillation: Continue the patient on in-house telemetry until discharge at which time the patient will continue the Holter monitor. So far no episodes of atrial fibrillation or other anomalies noted on monitoring. CKD: Discussed CKD with the patient this morning and as this relates to his use of NSAIDs as well as diabetes and hypertension. Patient was unaware of this diagnosis previously, have advised him to follow-up with PCP for further monitoring after discharge. Continue to monitor, avoid nephrotoxic medications. Consider renal consult if needed. Order stat labs now since the patient is being discharged by insurance. ADL and mobility deficits: Continue therapy as noted in order to improve patient's ability to perform ADLs and improve mobility without caregiver assistance if possible. All records, vitals, labs and medications were reviewed. No other issues per patient, nursing or therapy. Objective - Exam Narrative Exam: MUSCULOSKELETAL SPECIALTY EXAM CONSTITUTIONAL: Well developed, well nourished, appropriately groomed. RIGHT hand dominant. RESPIRATORY: Clear to auscultation bilaterally, no increased work of breathing CARDIOVASCULAR: Regular Rate/ Rhythm, no swelling, edema or tenderness in BUE or BLE. All extr emities warm. GI: + bowel sounds, soft, NTTP, nondistended. INTEGUMENTARY: Normal, no lesion, rash, masses or bruising noted in extremities. MUSCULOSKELETAL: BUE and BLE normal without defect, crepitus, subluxation, effusion, arthritic changes or TTP. R 5 /5 L 4- /5 left foot drop ROM decreased on left, normal on right Tone within normal limit NEURO: Sensation intact in all extremities without extinction. No tremor noted in 4 extremities. Naming and repetition intact. Follows 2 step commands. Aphasia not appreciated Dysarthria not appreciated Dysphagia not appreciated Neglect not appreciated POSTURE and GAIT: Sitting posture good. PSYCH: Alert, oriented x3, affect appears euthymic. Insight appears intact. - Constitutional Vitals: Vital Signs - 12hr 05/14/21 05/14/21 05/14/21 03:50 08:43 09:03 Temperature 97.4 F L 97.7 F Pulse Rate 58 L 77 80 Respiratory 16 20 Rate Blood Pressure 104/59 120/79 Blood Pressure 120/79 [Left] O2 Sat by Pulse 96 Oximetry 05/14/21 09:04 Temperature Pulse Rate 80 Respiratory Rate Blood Pressure 120/79 Blood Pressure [Left] O2 Sat by Pulse Oximetry - Allied health notes Allied health notes reviewed: nursing, PT, OT FIMS assessment as documented by PT/OT/ST: Locomotion- walk/wheelchair Ambulation Distance 80 - Labs CBC & Chem 7: 05/13/21 07:17 05/13/21 07:17 Labs: Laboratory Results - last 72 hr 05/11/21 05/11/21 05/12/21 16:17 21:14 08:35 WBC RBC Hgb Hct MCV MCH MCHC RDW Plt Count Sodium Potassium Chloride Carbon Dioxide Anion Gap BUN Creatinine Estimated GFR BUN/Creatinine Ratio Glucose POC Glucose 96 113 H 147 H Calcium 05/12/21 05/12/21 05/12/21 12:28 17:09 20:31 WBC RBC Hgb Hct MCV MCH MCHC RDW Plt Count Sodium Potassium Chloride Carbon Dioxide Anion Gap BUN Creatinine Estimated GFR BUN/Creatinine Ratio Glucose POC Glucose 194 H 125 H 134 H Calcium 05/13/21 05/13/21 05/13/21 07:17 07:17 07:51 WBC 6.8 RBC 4.60 Hgb 12.8 Hct 38.8 MCV 85 MCH 28 MCHC 33 RDW 13.8 Plt Count 413 Sodium 135 L Potassium 3.8 Chloride 96.8 L Carbon Dioxide 25 Anion Gap 17 BUN 43 H Creatinine 2.6 H Estimated GFR 30 BUN/Creatinine Ratio 17 Glucose 124 H POC Glucose 131 H Calcium 9.2 05/13/21 05/13/21 05/13/21 12:42 15:24 17:34 WBC RBC Hgb Hct MCV MCH MCHC RDW Plt Count Sodium Potassium Chloride Carbon Dioxide Anion Gap BUN Creatinine Estimated GFR BUN/Creatinine Ratio Glucose POC Glucose 147 H 183 H 115 H Calcium 05/13/21 05/14/21 20:25 12:34 WBC RBC Hgb Hct MCV MCH MCHC RDW Plt Count Sodium Potassium Chloride Carbon Dioxide Anion Gap BUN Creatinine Estimated GFR BUN/Creatinine Ratio Glucose POC Glucose 150 H 191 H Calcium Assessment and Plan CVA: Continue Secondary Stroke Prevention (Antithrombotic, Statin (Goal LDL-C <7 0), BP control (Goal <140/90), GLU control (Goal A1c <7), and lifestyle modification). Monitor for recurrent stroke or post-stroke recrudescence. Continue neuromotor therapy as above. Family training when available. Monitor for post stroke depression, cognitive deficits, seizure, dysphagia, aphasia, shoulder hand syndrome, sensory deficits, spasticity, bowel/bladder deficits, sleep disturbance, vision deficits and DVT. Prognosis for recovery and Secondary Stroke Prevention discussed. Follow up with Neurology. No driving until cleared by Neurologist. Hypertension: Continue medications, monitor patient for normotension and adjust medications as needed in order to achieve this. Goal blood pressure less than 140/90. Avoid hypotension. Diabetes: Poorly controlled with an A1c of 12.6. Per outside records patient was not taking any medications for the past 2 years for diabetes. We will continue carb controlled diet and insulin/sliding scale and adjust as needed for normoglycemia. Left foot drop: Continue work with therapy, AFO use as needed and will write a prescription for AFO at home if patient does not have return of function Dysphagia: Uncertain at this point based on outside records, will have speech therapy evaluate the patient and institute appropriate precautions. Possible atrial fibrillation: Based on scattered infarcts and outside records, patient may have undetected atrial fibrillation. Continue telemetry monitoring and look for any signs of of atrial fibrillation. If noted, will contact [employer]. Outside hospital recommending a 30-day event monitor after discharge. CKD: Uncertain of baseline but patient is relatively stable currently with only a slight bump. Avoid nephrotoxic medications and consider renal consult if needed. Have discussed with the patient interaction between age, diabetes, hypertension as well as use of NSAIDs with CKD. Advised patient to follow-up with PCP for further monitoring after discharge. IV fluids started on 05/13, monitor for improvement of BUN and creatinine. ADL dysfunction: OT will work on improving ability to perform ADLs (including assistive devices) to increase independence and decrease caregiver burden and improve functional transfers and mobility training. Difficulty walking: PT will work on gait training and proper use of assistive devices and advance as appropriate to use of stairs and outside ambulation on uneven surfaces. Unsteadiness on feet: PT will work on improving static and dynamic sitting and standing balance as well as proper use of assistive devices to decrease risk of falls. Abnormality of gait: PT will work to improve safety and efficiency of gait through neuromotor training and gait training along with instruction on proper use of assistive devices. Muscle weakness: PT & OT will work on strengthening exercises to improve functional strength including mixture of closed and open kinetic chain exercises. Debility: PT & OT will work on improving overall functional status to improve participation with ADLs, mobility and social involvement. Fatigue: PT & OT will work on improving endurance through aerobic exercises and therapeutic activity while monitoring patients tolerance for activity and vital signs as needed. DVT ppx: Heparin Pain: Continue physical modalities in therapy and pain medications as needed to achieve functional pain control. Sleep: Monitor and address as needed. Bowel: Monitor and address as needed. Appetite: Monitor and address as needed. Discharge planning: Pending therapy progress and care plan meeting. Will continue discussion with therapy team, SW, patient and family. Patient being discharged by insurance even though we do still have some progress that could be made on the inpatient unit. Will discharge home tomorrow with family. Orders placed for a hemiwalker, custom AFO posterior articulating, and home health R N/PT/OT Restrictions/ Precautions: Falls WB status: FWB Functional Hx: ADLs: Independent Cognition: Independent Mobility: No AD Barriers to Discharge: Decreased mobility and ability to perform self care, balance deficits, weakness Estimated Length of Stay: 1421 days Discharge Destination: Home with family
[2021-05-14 16:24] LABS: Calcium 9.4 mg/dL (8.4-10.2)
[2021-05-14] MEDS ORDERED: SODIUM CHLORIDE 0.9% 1000 ML 1,000 ML IV SCH (17:30)
[2021-05-14] MEDS ORDERED: POLYETHYLENE GLYCOL 3350 17 GM POWDER PO PRN (21:06)
[2021-05-14] MEDS: INSULIN GLARGINE 100 UNITS/ML SUB-Q SCH (22:29)
[2021-05-15 08:30] LABS: Hematocrit 38.6 % (35.5-45.6); Hemoglobin 12.5 gm/dl (11.8-15.2); Mean Corpuscular HGB Conc 32 % (32-34); Mean Corpuscular Volume 85 fl (84-94); Platelet Count 453 K/mm3 (140-440); Red Blood Count 4.53 M/mm3 (3.65-5.03); Red Cell Distribution Width 13.9 % (13.2-15.2)
[2021-05-15] MEDS: INSULIN LISPRO 100 UNIT/ML SUB-Q SCH (08:32)
--- NOTE | 2021-05-15 08:48 | Event Note ---
Date: 05/15/21 Was called last night about the patient not having any bowel movement since he has been in the hospital. However patient has stated to me that he has had bowel movements and 2 bowel movements have been charted in the computer by staff. We will continue to monitor for improvement. Uncertain as to whether the patient will be discharged today are held over due to medical issues. Awaiting lab values to see if his renal function has improved.
[2021-05-15 08:57] LABS: Calcium 9.2 mg/dL (8.4-10.2)
--- NOTE | 2021-05-15 09:35 | Discharge Summary ---
Providers - Providers Date of Admission: 05/07/21 18:43 Date of discharge: 05/15/21 Attending physician: ROSALBA MICHELE III, MD 05/07/21 13:28 Occupational Therapy Evaluate and Treat [CONS] Routine Comment: Reason For Exam: ADL dysfunction Physical Therapy Evaluation and Treat [CONS] Routine Comment: Reason For Exam: Mobility Dysfunction 05/07/21 13:30 Consult to Case Management [CONS] Routine Services Needed at Discharge: Home Health Services Notified:: foster care case manager 05/07/21 13:31 Consult to Dietitian/Nutrition [CONS] Routine Physician Instructions: Reason For Exam: Reason for Consult: Diet education Speech Therapy Evaluation and Treat [CONS] Routine Reason For Exam: CVA, Assess/Treat Speech/Cog/Swallow 05/14/21 17:27 Consult to Physician [CONS] Routine Comment: Consulting Provider: MILES WESLEY Physician Instructions: Reason For Exam: AMY on CKD Primary care physician: FLOOR BROKER Hospitalization Reason for admission: CVA Pertinent studies: On 05/15/2021: WBCs 5.5, hemoglobin 12.5, hematocrit 38.6, platelet 453, sodium 137, potassium 4.5, chloride 100.2, carbon dioxide 24, BUN 38, creatinine 2.2, glucose 125, calcium 9.2 Hospital course: 71-year-old male who developed left-sided weakness and awaited for the problem to resolve however the symptoms did not resolve and the patient sought help several hours later at [facility]. 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 MRA head showed no large vessel occlusion, multifocal acute infarcts scattered throughout the right frontal parietal lobe, right parietal lobe, left temporal lobe without hemorrhagic conversion and probable small venous anomaly versus cavernous malformation in the left paracentral occipital lobe, chronic infarcts throughout the basal ganglia. No significant stenosis was seen in the vessels of the neck on MR angiogram. MRI brain showed acute to early subacute infarct of the right hemisphere. Patient's A1c at the outside hospital was 12.6 and reportedly the patient has been off medication for at least 2 years. Patient developed AMY superimposed on CKD stage III which was treated with hydration and monitoring. Patient underwent speech therapy evaluation for dysphagia who recommended softer foods and chopped meats due to dentition issues. Notes from outside hospital are slightly unclear as one section of the same note shows aspiration precautions and a modified diet but in a later sect ion of the same note no aspiration precautions. At any rate will have speech therapy evaluate patient for appropriate current diet and continue to treat as needed. After the patient was medically stabilized they were transferred for further rehabilitation. All available medical records have been reviewed. Plan of care was discussed with patient. CVA: Continue Secondary Stroke Prevention (Antithrombotic, Statin (Goal LDL-C <70), BP control (Goal <140/90), GLU control (Goal A1c <7), and lifestyle modification). Monitor for recurrent stroke or post-stroke recrudescence. Patient should remain on aspirin 81 mg unless canceled by neurology. Patient is on 21 days of Plavix 75 mg with the last dose on May 29, 2021. Continue neuromotor therapy, outpatient/home health ordered as appropriate. Family training today prior to discharge. Monitor for post stroke depression, cognitive deficits, seizure, dysphagia, aphasia, shoulder hand syndrome, sensory deficits, spasticity, bowel/bladder deficits, sleep disturbance, vision deficits and DVT. Prognosis for recovery and Secondary Stroke Prevention discussed. Follow up with Neurology. No driving until cleared by Neurologist. Hypertension: Continue medications, monitor patient for normotension and adjust medications as needed in order to achieve this. Goal blood pressure less than 140/90. Avoid hypotension. Patient has been fairly well controlled on current medications including amlodipine 10 mg daily, labetalol 200 mg twice daily, losartan 100 mg daily Diabetes: Poorly controlled with an A1c of 12.6. Per outside records patient was not taking any medications for the past 2 years for diabetes. We will continue carb controlled diet and insulin/sliding scale and adjust as needed for normoglycemia. Patient was previously on sulfonylurea as well which has been held due to renal disease. Patient is doing fairly well on Lantus (switched to detemir at discharge due to inmsurance) and sliding scale (rarely utilized, not discharged on SSI) but will need to be adjusted by PCP once he returns to his regular diet. Left foot drop: Continue work with therapy, AFO has been ordered and patient will need a custom, posterior articulating AFO. Dysphagia: Patient was cleared by speech therapy of dysphagia and has been advanced to a regular diet. Possible atrial fibrillation: Based on scattered infarcts and outside records, patient may have undetected atrial fibrillation. Continue telemetry monitoring and look for any signs of of atrial fibrillation -no issues noted on telemetry during the patient stay on inpatient rehab. If noted, will contact assistant in nursing. Outside hospital recommending a 30-day event monitor after discharge. Patient will need to place Holter monitor on and continue it for 30 days after discharge and contact outside assistant in nursing for any questions. CKD: Patient was stable at first but then started increasing levels of BUN and creatinine prompting couple of liters of IV fluids and a nephrology consult. We discontinued a couple of medications based on renal concerns. Patient initially denied any knowledge of CKD but then today noted that his PCP was making a referral for nephrology consult. I was able to talk with his primary care's office today and it appears that his BUN was 27 creatinine 1.87 in November. At this point he has responded well to IV fluids and is close to baseline, will go ahead and discharge patient home with a close follow-up with his PCP and senior research associate. Have discussed with the patient interaction between age, diabetes, hypertension as well as use of NSAIDs with CKD. Advised patient to follow-up with PCP for further monitoring after discharge. 2 L of normal saline IV were given with improvement of BUN and creatinine. ADL and mobility deficits: Patient has improved his ability to ambulate with physical therapy and is able to ambulate currently with a hemiwalker and AFO at the level of modified independent. Patient is doing fairly well with balance as well without loss of balance when ambulating or standing. Ambulating greater than household distances at mod I. Able to transverse stairs with a step to technique at mod I. ADLs is also improved to the level of standby assist/modified independent. Disposition: HOME HEALTH CARE SERVICE Final Discharge Diagnosis (Prints w/discharge instructions): CVA, CKD, DM, HTN, L Foot Drop Time spent for discharge: >36mins Core Measure Documentation - Palliative Care Palliative Care/ Comfort Measures: Not Applicable - Core Measures Any of the following diagnoses?: stroke - Stroke Discharge Requirements Statin for LDL = or >70 mg/dl on DC: Yes Anticoag for atrial fib/atrial flutter: Not Applicable (Outside hospital suspected possible atrial fibrillation, event monitor has been ordered and is with patient. During his stay with us we have seen no signs of dysrhythmia or atrial fibrillation on telemetry monitoring.) Antithrombotic for ischemic stroke: Yes Exam - Physical Exam Narrative exam: MUSCULOSKELETAL SPECIALTY EXAM CONSTITUTIONAL: Well developed, well nourished, appropriately groomed. RIGHT hand dominant. RESPIRATORY: Clear to auscultation bilaterally, no increased work of breathing CARDIOVASCULAR: Regular Rate/ Rhythm, no swelling, edema or tenderness in BUE or BLE. All extremities warm. GI: + bowel sounds, soft, NTTP, nondistended. INTEGUMENTARY: Normal, no lesion, rash, masses or bruising noted in extremities. MUSCULOSKELETAL: BUE and BLE normal without defect, crepitus, subluxation, effusion, arthritic changes or TTP. R 5 /5 L 4- /5 left foot drop ROM decreased on left, normal on right Tone within normal limit NEURO: Sensation intact in all extremities without extinction. No tremor noted in 4 extremities. Naming and repetition intact. Follows 2 step commands. Aphasia not appreciated Dysarthria not appreciated Dysphagia not appreciated Neglect not appreciated POSTURE and GAIT: Sitting posture good. Gait fair with assistive device and AFO PSYCH: Alert, oriented x3, affect appears euthymic. Insight appears intact. - Constitutional Vitals: Temp Pulse Resp BP Pulse Ox 97.5 F L 63 14 112/72 97 05/15/21 03:47 05/15/21 03:47 05/15/21 03:47 05/15/21 03:47 05/15/21 07:54 Plan Activity: no driving until cleared by PCP, fall precautions Diet: diabetic (Heart healthy diabetic diet, depending on renal issues after follow-up with senior research associate may need to institute renal restrictions.) Special Instructions: record daily BP diary, record blood sugar diary, physical therapy, occupational therapy, home health RN Durable Medical Equipment Needed Upon Discharge: other (Hemiwalker, custom AFO) Care Plan Goals: Patient will need to follow-up with primary care Dr. Saman Williamson at [facility]. I have contacted their office and notified them of patient's condition as well as obtained his baseline creatinine/BUN. Appreciate their assistance and will attempt to ensure that the discharge summary is faxed to their office as well. Patient's blood pressure and glucose levels are fairly well controlled current on current medications however this may change with resumption of normal diet and activity once the patient is discharged home. Have requested the patient keep track of his blood glucose as well as blood pressure and present his findings to his PCP for follow-up. Patient will need to follow-up with neurology in the next month or 2 as well as nephrology in the next couple of weeks. Patient should remain on aspirin indefinitely and Plavix for a total of 21 days. Prognosis and recovery from CVA was discussed with the patient on numerous occasions. We stressed the importance of maintaining good control over blood pressure, cholesterol and diabetes in order to reduce his risk of secondary CVA. If patient develops any further signs or symptoms of worsening CVA or neurologic decline, he should immediately seek assistance at the nearest ER as even though best efforts are being made to reduce his risk of second stroke he is still at risk for having a secondary CVA. Follow up with: Saman Williamson MD [Other] - 7 Days (Please fax Discharge Summary to [phone]. Patient has a prior referral to nephrology. Will need to follow up with Neurology in 2 months for CVA. May need to follow up with Cardiology pending results of 30 day event monitor.) Prescriptions: Insulin Detemir [Levemir Flextouch] 20 unit SQ QHS #2 insuln.pen AtorvaSTATin [Lipitor] 80 mg PO QHS #60 tablet amLODIPine 10 mg PO QDAY #30 tablet Losartan [Cozaar] 100 mg PO QDAY #60 tablet Aspirin EC [Halfprin EC] 81 mg PO QDAY #30 tablet labetaloL [Labetalol 200mg TAB] 200 mg PO BID #60 tablet Clopidogrel [Plavix] 75 mg PO QDAY #14 tablet
--- NOTE | 2021-05-15 10:09 | Consultation ---
History of Present Illness - Reason for Consult Consult date: 05/15/21 chronic renal failure - History of Present Illness This is a 71 year old man who presents for rehab s/p likely CVA with subsequent weakness. Nephrology consulted ahead of discharge to evaluate CKD; patient notes not knowing of any kidney problem previously. Currently states that he feels well and denies any renally related symptoms. Getting ready for discharge today. Past History Past Medical History: diabetes, hypertension, renal failure (Stage III CKD per outside hospital) Past Surgical History: No surgical history Social history: lives with family, full code. denies: smoking, alcohol abuse Family history: cancer, diabetes Medications and Allergies Allergies Allergy/AdvReac Type Severity Reaction Status Date / Time No Known Allergies Allergy Unverified 05/07/21 13:43 Home Medications Medication Instructions Recorded Confirmed Last Taken Type Aspirin EC [Halfprin EC] 81 mg PO QDAY #30 tablet 05/15/21 Unknown Rx AtorvaSTATin [Lipitor] 80 mg PO QHS #60 tablet 05/15/21 Unknown Rx Clopidogrel [Plavix] 75 mg PO QDAY #14 tablet 05/15/21 Unknown Rx Insulin Detemir [Levemir Flextouch] 20 unit SQ QHS #2 insuln.pen 05/15/21 Unknown Rx Losartan [Cozaar] 100 mg PO QDAY #60 tablet 05/15/21 Unknown Rx amLODIPine 10 mg PO QDAY #30 tablet 05/15/21 Unknown Rx labetaloL [Labetalol 200mg TAB] 200 mg PO BID #60 tablet 05/15/21 Unknown Rx Active Meds: Active Medications Acetaminophen (Acetaminophen 325 Mg Tab) 650 mg PO Q6H PRN PRN Reason: Pain MILD(1-3)/Fever >100.5/[place] Hydrocodone Bitart/Acetaminophen (Hydrocodone/Acetaminophen 5-325 Mg Tab) 1 each PO Q8H PRN PRN Reason: Pain, Moderate (4-6) Last Admin: 05/14/21 22:26 Dose: 1 each Documented by: Amlodipine Besylate (Amlodipine 10 Mg Tab) 10 mg PO QDAY [facility] Last Admin: 05/14/21 09:04 Dose: 10 mg Documented by: Aspirin (Aspirin Ec 81 Mg Tab) 81 mg PO QDAY [facility] Last Admin: 05/14/21 09:03 Dose: 81 mg Documented by: Atorvastatin Calcium (Atorvastatin 40 Mg Tab) 80 mg PO QHS [facility] Last Admin: 05/14/21 22:27 Dose: 80 mg Documented by: Bisacodyl (Bisacodyl 5 Mg Tab) 5 mg PO QDAY PRN PRN Reason: Constipation Last Admin: 05/14/21 22:26 Dose: 5 mg Documented by: Clopidogrel Bisulfate (Clopidogrel 75 Mg Tab) 75 mg PO QDAY [facility] Stop: 05/29/21 09:59 Last Admin: 05/14/21 09:04 Dose: 75 mg Documented by: Dextrose (Dextrose 50% In Water (25gm) 50 Ml Syringe) 50 ml IV Q30MIN PRN; P rotocol PRN Reason: Hypoglycemia Heparin Sodium (Porcine) (Heparin 5,000 Unit/1 Ml Vial) 5,000 unit SUB-Q Q12HR [facility] Last Admin: 05/14/21 22:26 Dose: 5,000 unit Documented by: Insulin Glargine (Insulin Glargine 100 Units/Ml) [facility] Last Admin: 05/14/21 22:29 Dose: 20 units Documented by: Insulin Human Lispro (Insulin Lispro 100 Unit/Ml) 0 unit SUB-Q [facility]; Protocol Last Admin: 05/15/21 08:32 Dose: Not Given Documented by: Labetalol HCl (Labetalol 200 Mg Tab) 200 mg PO BID [facility] Last Admin: 05/14/21 22:27 Dose: 200 mg Documented by: Losartan Potassium (Losartan 50 Mg Tab) 100 mg PO QDAY [facility] Last Admin: 05/14/21 09:03 Dose: 100 mg Documented by: Polyethylene Glycol (Polyethylene Glycol 3350 17 Gm Powder) 17 gm PO QDAY PRN PRN Reason: Constipation Last Admin: 05/14/21 22:26 Dose: 17 gm Documented by: Review of Systems All systems: negative (as per HPI) Exam - Vital Signs Vital signs: Vital Signs Pulse BP 85 125/75 05/07/21 22:00 05/07/21 22:00 - General Appearance General appearance: well-developed, well-nourished, appears stated age EENT: PERRL, mucous membranes moist Neck: Present: neck supple, trachea midline. Absent: JVD/HJR, Masses Respiratory: Clear to Ascultation Heart: regular, S1S2 Gastrointestinal: Present: normoactive bowel sounds Integumentary: warm and dry Neurologic: no focal deficit, no asterixis, alert and oriented x3 Psychiatric: mood/affect appropriate Results - Lab Results 05/15/21 07:58 05/15/21 07:58 Most recent lab results Calcium 9.2 mg/dL (8.4-10.2) 05/15/21 07:58 Assessment and Plan # CKD vs AMY: suspect CKD in setting of DM, HTN, CVA. Will establish outpatient follow up, no need for inpatient workup as he is stable - check renal imaging, PTH, serologies as outpatient - avoid nephrotoxins, did discuss role of NSAIDs in CKD with patient - renally dose medications # HTN: BP control, will follow as outpatient # DM # CVA
[2021-05-15] MEDS: ASPIRIN EC 81 MG TAB PO SCH (10:16)
[2021-05-15] MEDS: CLOPIDOGREL 75 MG TAB PO SCH (10:16)
[2021-05-15] MEDS: HEPARIN 5,000 UNIT/1 ML VIAL SUB-Q SCH (10:16)
[2021-05-15] MEDS: amLODIPine 10 MG TAB PO SCH (10:16)
[2021-05-15] MEDS: LOSARTAN 50 MG TAB PO SCH (10:16)
[2021-05-15 12:39] VITALS: BP 115/73
== END 2021-05-15 16:47 | disposition home health service (06) | DRG 66 ==
LOC: UNDOADMIN 11:10 → 4A 11:10
PROVIDERS: ADMIT Physical Medicine & Rehabilitation; ATTEND Physical Medicine & Rehabilitation
DX: I63.9 Cerebral infarction, unspecified (principal); R53.81 Other malaise; I12.9 Hypertensive chronic kidney disease with stage 1 through stage 4 chronic kidney disease, or unspecified chronic kidney disease; E11.22 Type 2 diabetes mellitus with diabetic chronic kidney disease; N18.30 Chronic kidney disease, stage 3 unspecified; Z83.3 Family history of diabetes mellitus; E11.65 Type 2 diabetes mellitus with hyperglycemia; R13.10 Dysphagia, unspecified; R26.81 Unsteadiness on feet
CPT/HCPCS: 36415; 80048; 80053; 82962; 85025; 85027; G0378; A9270-GY; J1644; J1815; J7030